=== PATIENT | male | born 1965 | race Caucasian/White ===

== ENCOUNTER 2020-05-11 08:56 | Emergency (ER) | payer MEDICAID ==
[~2020-05-11] VITALS: Ht 177.8 cm; Wt 76.2 kg
[2020-05-11 09:01] VITALS: BP 128/75
[2020-05-11] MEDS ORDERED: ONDANSETRON 2MG/ML, 2ML IVPush ONE (09:30)
[2020-05-11] MEDS ORDERED: MORPHINE SULFATE 4 MG/ML, 1ML IVPush PRN (09:30)
--- NOTE | 2020-05-11 09:36 | NUR ---
IN ROOM FOR IV PLACEMENT. PT REFUSING IV AND LABS STATING HE IS NOT HERE TO GET POKED WITH NEEDLES. MADE AWARE.
--- NOTE | 2020-05-11 10:12 | NUR ---
PT REFUSING VITALS AT THIS TIME
== END 2020-05-11 10:30 | disposition home or self-care (01) ==
LOC: ED 10:00
DX: K40.90 Unilateral inguinal hernia, without obstruction or gangrene, not specified as recurrent (principal); F17.200 Nicotine dependence, unspecified, uncomplicated
CPT/HCPCS: 99283